=== PATIENT | male | born 1990 | race Caucasian/White ===

== ENCOUNTER 2023-05-24 07:52 | Emergency (ER) | payer OTHER ==
--- NOTE | 2023-05-24 08:12 | ED Physician Documentation ---
PD HPI UPPER EXT INJURY - Stated complaint Stated Complaint: BILAT WRIST PX - Chief complaint Chief Complaint: Trauma Ext - History obtained from History obtained from: Patient - History of Present Illness Location: Right (right wrist started hurting doing PRT physical testing 4 days ago, with onset pain later in day and has persisted.), Left (left wrist pain when struck volleyball during game yesterday.), Wrist Where injury occurred: Work Timing - onset: How many days ago (4 days right wrist, 2 days for left.) Timing - duration: Days Timing - details: Abrupt onset, Still present Associated symptoms: No: Weakness, Numbness Similar symptoms before: Has not had sx before Review of Systems Constitutional: denies: Fever, Chills Skin: denies: Rash, Lesions Musculoskeletal: denies: Extremity swelling Neurologic: denies: Focal weakness, Numbness PD PAST MEDICAL HISTORY - Past Medical History Cardiovascular: None Respiratory: None Endocrine/Autoimmune: None - Present Medications Home Medications: Ambulatory Orders Medication Instructions Recorded Confirmed No Known Home Medications 05/24/23 05/24/23 - Allergies Allergies/Adverse Reactions: Allergies Allergy/AdvReac Type Severity Reaction Status Date / Time No Known Drug Allergies Allergy Verified 05/24/23 08:09 PD ED PE NORMAL - Vitals Vital signs reviewed: Yes - General General: Alert and oriented X 3, No acute distress, Well developed/nourished - Derm Derm: Normal color, Warm and dry, No rash - Extremities Extremities: Other (right wrist with some tenderness volar area. Not tender in snuffbox. No edema. Left wrist with tender along radial side and base of thumb. ) - Neuro Neuro: Alert and oriented X 3, No motor deficit, No sensory deficit Results - Vitals Vitals: Vital Signs - 24 hr 05/24/23 05/24/23 08:07 09:21 Temperature 36.9 C Heart Rate 63 65 Respiratory 14 16 Rate Blood Pressure 138/92 H 128/90 H O2 Saturation 99 100 Oxygen O2 Source Room air - Rads (name of study) wrist xrays Relevant Findings:: Prelim report reviewed, EMP independent interpretation of test (no acut process) PD Medical Decision Making - ED course Complexity details: reviewed results, considered differential (sprain left wrist more acutely, and right wrist sounding more like overuse strain. Can treat with splints. NSAIDs. decreased work. ), d/w patient Departure - Departure Disposition: 01 Home, Self Care Clinical Impression: Left wrist sprain, Right wrist tendonitis Condition: Stable Record reviewed to determine appropriate education?: Yes Instructions: ED Sprain Wrist Follow-Up: DANE Garg [Provider Group] Comments: Your x-rays are normal which only shows you the bony structures. It seems likely that you have a sprain of the left wrist (more of an acute stretch type injury) and tendinitis/sprain of the right (more of a repetitive use/irritation). These are similarly treated with decreased use and some support or bracing as well as NSAIDs and time. Use the wrist splints when active to help support and protect the ligaments and muscles. You do not have to have them on all the time. Continue with some ibuprofen 600 mg 2-3 times daily regularly for the next week. Add Tylenol if needed. Follow-up with your primary care/base clinic if not improved well over the next 5 or 6 days. Later use with your wrist during that time. Forms: PCP List, Activity restrictions Discharge Date/Time: 05/24/23 09:22
--- NOTE | 2023-05-24 09:12 | XRAY Report ---
PROCEDURE: Wrist 3 View BILAT INDICATIONS: sprain left yest; slower onset pain right TECHNIQUE: 3 views of the wrists were acquired. COMPARISON: None. FINDINGS: Bones: No fractures or dislocations. No suspicious bony lesions. Soft tissues: No suspicious soft tissue calcifications or masses. IMPRESSION: No acute bony abnormality. Reviewed by: Jim Diallo on 05/24/2023 9:11 AM PDT Approved by: Jim Diallo on 05/24/2023 9:11 AM PDT Station ID: [id number]
[2023-05-24 09:31] VITALS: BP 128/90
== END 2023-05-24 09:22 | disposition home or self-care (01) ==
LOC: ED 07:52
DX: S63.502A Unspecified sprain of left wrist, initial encounter (principal); W21.06XA Struck by volleyball, initial encounter; Y93.68 Activity, volleyball (beach) (court); Y92.318 Other athletic court as the place of occurrence of the external cause; M77.8 Other enthesopathies, not elsewhere classified
CPT/HCPCS: 99283

== ENCOUNTER 2023-06-15 10:57 | Emergency (ER) | payer OTHER ==
--- NOTE | 2023-06-15 11:36 | ED Physician Documentation ---
History of Present Illness - Stated complaint Stated Complaint: RIB PX,SOA - Chief complaint Chief Complaint: Resp - Additonal information Additional information: 33-year-old male presents emergency department for evaluation of acute right-si ded rib and chest wall pain. Reports that 3 evenings ago he had gone up a steep hill to capture his cat who escaped. When he caught the cat and was walking back down the hill he lost his footing falling directly onto the ground on his right side and shoulder. States the wind was knocked out of him but he did not lose consciousness. No anticoagulation. Since then he has had some fairly persistent pain in the rib wall. Movements are intact. He does vape. No recent hemoptysis. Denies neck pain back pain or extremity pain. No melena or hematochezia. Review of Systems Constitutional: denies: Fever Throat: reports: Reviewed and negative Cardiac: reports: Reviewed and negative Respiratory: denies: Dyspnea, Cough, Hemoptysis GI: reports: Reviewed and negative : reports: Reviewed and negative Skin: reports: Reviewed and negative Musculoskeletal: reports: Other (chest wall pain). denies: Neck pain, Back pain Neurologic: reports: Reviewed and negative PD PAST MEDICAL HISTORY - Past Medical History Cardiovascular: None Respiratory: None Endocrine/Autoimmune: None - Past Surgical History Past Surgical History: No - Present Medications Home Medications: Ambulatory Orders Medication Instructions Recorded Confirmed HYDROcod/ACETAM 5/325 [[place] 5/325] 1 tablet PO BID PRN #7 tablet 06/15/23 - Allergies Allergies/Adverse Reactions: Allergies Allergy/AdvReac Type Severity Reaction Status Date / Time No Known Drug Allergies Allergy Verified 05/24/23 08:09 - Social History Does the pt smoke?: Yes Smoking Status: Current every day smoker Does the pt drink ETOH?: Yes Does the pt have substance abuse?: No - Immunizations Immunizations are current?: Yes PD ED PE NORMAL - General General: Alert and oriented X 3, No acute distress - HEENT HEENT: PERRL - Neck Neck: C-Spine cleared by NEXUS criteria - Cardiac Cardiac: RRR, No murmur - Respiratory Respiratory: No respiratory distress, Clear bilaterally - Abdomen Abdomen: Normal bowel sounds, Soft - Back Back: No spinal TTP (No pain elicited with palpation of the cervical thoracic or lower lumbar spinous processes. No step-off or deformity. Normal gait.), Other (Mild tenderness elicited with palpation of the right anterior lateral rib sullivan. No ecchymosis noted. No crepitus. Patient able to take full deep breaths.) - Derm Derm: Warm and dry, Other (No abrasions or ecchymosis noted on thorax) - Extremities Extremities: No deformity - Neuro Neuro: Alert and oriented X 3 Eye Opening: Spontaneous Motor: Obeys Commands Verbal: Oriented GCS Score: 15 Results - Vitals Vitals: Vital Signs - 24 hr 06/15/23 11:00 Temperature 37.0 C Heart Rate 75 Respiratory 18 Rate Blood Pressure 148/88 H O2 Saturation 98 Oxygen O2 Source Room air PD Medical Decision Making - ED course Complexity details: reviewed results, re-evaluated patient, considered differential, d/w patient ED course: 33-year-old male presents to the emergency department for evaluation of right chest wall pain. Had a fall down a hill 3 nights ago. He has reproducible pain on the anterior and right lateral rib sullivan. There is no obvious ecchymosis or crepitus. His cardiopulmonary auscultation was unremarkable. Room air saturations 98%. PA chest with rib x-rays interpreted by the radiologist showed no acute or displaced rib fractures. There were no findings of pneumonia, pneumothorax cardiomegaly or pleural effusion. Clinically history is most suggestive of chest wall or rib wall contusion. I making the recommendation for ibuprofen and Tylenol for discomfort. For more severe pain a very limited amount of Naubinway has been sent to the pharmacy. The usual emergent return precautions for failure symptoms to resolve was discussed. I am prescribing a short course of short-acting opioid pain medication for this patient. 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 I have discussed that the opioids are for short term therapy only, and will not be refilled from the ED. Departure - Departure Disposition: 01 Home, Self Care Clinical Impression: Contusion of chest wall with intact skin Condition: Stable Record reviewed to determine appropriate education?: Yes Instructions: ED Contusion Rib Prescriptions: HYDROcod/ACETAM 5/325 [[place] 5/325] 1 tablet PO BID PRN #7 tablet PRN Reason: Pain Comments: As discussed at the bedside your fall Saturday evening did not result in any obvious rib fractures but you certainly do have some rib and chest wall contusions. I would expect this to be getting better over the next week to 10 days. In general I want you to take 500 mg of Tylenol twice daily or alternate with 600 mg of ibuprofen taken with food twice daily. For more severe pain I have written a prescription for limited amount of Naubinway/hydrocodone. Reasons to return to the ER would include the development of any fevers, concerns of pneumonia, bloody sputum, severe difficulty breathing. I am prescribing a short course of narcotic pain medication for you. These are potentially dangerous and addictive medications that should be used carefully. These medications may constipate you. Take an [id number] stool softener (docusate) twice daily with plenty of water while taking these medications. If you go 24 hours without a bowel movement, take [id number] miralax, per package instructions. Do not drink or drive while taking these medications. If you received narcotic or sedating medications while in the emergency department, do not drive for 24 hours. Store this medication in a safe, secure place and out of reach of children. It is a violation of federal law to give or sell this medication to another person or to use in a manner other than prescribed. The ED will not refill narcotic prescriptions, including prescriptions lost or stolen. To dispose of unwanted medications: 1. [facility] at [address] in [place] has a medication drop box. They accept prescription medications (in pill form) Saturday through Saturday 9:00 a.m. to 5:00 p.m. 2. The [facility] [employer] accepts prescription medications (in pill form only) for disposal year round. Call for more information. 3. Contact the [facility] for the next [facility] sponsored prescription drug collection event. , [phone], or [phone]; Note that many narcotic pain relievers also contain Tylenol/acetaminophen. Please ensure that your total dose of acetaminophen from all sources does not exceed 3 g (3000 mg) per day. Forms: PCP List
--- NOTE | 2023-06-15 12:07 | XRAY Report ---
PROCEDURE: Ribs w/PA Chest RT INDICATIONS: pain after fall down hill TECHNIQUE: 2 views of the left ribs were acquired, along with a single view chest. COMPARISON: None. FINDINGS: Surgical changes and devices: None. Bones and chest wall: No fractures or dislocations. No suspicious bony lesions. Overlying soft tis sues appear unremarkable. Lungs and pleura: No pleural effusions or pneumothorax. Lungs appear clear. Mediastinum: Mediastinal contours appear normal. Heart size is normal. IMPRESSION: No displaced rib fracture or pneumothorax. Reviewed by: Reyes Sun MD on 06/15/2023 12:05 PM PDT Approved by: Reyes Sun MD on 06/15/2023 12:05 PM PDT Station ID: [id number]
[2023-06-15 12:49] VITALS: BP 140/92; O2SAT 99
== END 2023-06-15 12:46 | disposition home or self-care (01) ==
LOC: ED 10:57
DX: S20.211A Contusion of right front wall of thorax, initial encounter (principal); W18.39XA Other fall on same level, initial encounter; Y93.01 Activity, walking, marching and hiking; Y92.828 Other wilderness area as the place of occurrence of the external cause; F17.200 Nicotine dependence, unspecified, uncomplicated
CPT/HCPCS: 99283

== ENCOUNTER 2023-08-21 10:39 | Outpatient (CLI) | payer OTHER ==
--- NOTE | 2023-08-21 11:32 | Sleep Patient Instructions ---
Sleep Center Visit Summary - Patient Visit Information Reason for Visit: Initial consult for evaluation of sleep disordered breathing and other sleep issues. - Patient Instructions Instructions Attached: Sleep Study Home Monitor Additional Instructions: You will be completing a sleep study, either an in-lab polysomnography (PSG) or home sleep study (HST). You will follow-up in the sleep care office after the sleep study is completed to hear the results and talk about therapy, if needed. You will be called by our office staff to schedule this appointment, but you may contact us with any questions. - Clinic Information Contact: [facility] [address] [place] [address] [email or web address] T: [phone]
--- NOTE | 2023-08-21 11:37 | SLEEP CARE CONSULTATION ---
Information from patient questionnaire entered by Clinton Lr. I have reviewed and concur with the information entered by Clinton Lr. This document represents the service I personally performed and the decisions made by me, Angy Bueno ARNP. History of Present Illness Service Date and Time: 08/21/2023 1039 Reason for Visit: New patient Chief Complaint: reports: Unrefreshed sleep, Snoring, Excessive daytime sleepiness, Observed pauses in breathing, Fatigue Date of Onset: 2-2.5YRS Usual bedtime: 9PM Time it takes to fall asleep: 5MIN Snores at night: Yes Observed to quit breathing while asleep: Yes Sleeps alone due to snoring: Yes Number of times waking at night: 4-5 Reasons for waking at night: reports: Choking, Snoring, Gasping for air Toss, Turn, or Twitch while sleeping: Yes Recalls having dreams: No Usually gets out of bed at: 5AM; weekends to 6-7 AM Feels refreshed in the morning: No Morning headache: No Sleepy or fatigued during the day: Yes Ever fallen asleep while driving: No Takes day naps: Yes (daily after work; for 1 hour to 1 hr 15 mins) Dreams during day naps: No Prior sleep studies: No Additional HPI information: I had the pleasure of seeing HENNY JUÁREZ today regarding the possibility of him having a sleep disorder. His current complaints are excessive daytimes sleepiness, fatigue, frequent night awakenings, observed pauses in breathing, snoring and unrefreshed sleep. He states he can fall asleep easily and quickly. But, he will wake up multiple times a night. His will wake him up several times for snoring. He does wake up choking and gasping for air. It is not every night, but averages 1-3 times a week. He states he does not remember dreaming. He rarely wakes up feeling refreshed in the morning despite getting enough time in bed. 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 Patient is and lives in [place]. Have you smoked in the past 12 months: Yes (VAPE) Cigarettes per day (20/pack): 10 Years of smokin Smoking Pack Years: 7.0 Alcohol use: Yes Alcohol amount and frequency: 1-2 GLASSES A MONTH Caffeine use: Yes Caffeine amount and frequency: 1 CAN 2-3X WEEK Family History Family history of sleep disordered breathing: Yes Family Hx Sleep Apnea: Father: Snoring, Sibling: Snoring Allergies and Home Medications Known drug allergies: No Drug allergies reviewed: Yes Home medication list reviewed: Yes Allergy and home medication list: Allergies No Known Drug Allergies Allergy (Verified 08/20/23 12:36) Home Medications Medication Instructions Recorded Confirmed Last Taken Type [place]-3/Dha/Epa/Fish Oil [Fish Oil See Rx Instructions .ROUTE .COMPLEX 08/21/23 08/21/23 Unknown History 1,000 mg Softgel] Review of Systems Cardiovascular: reports: high blood pressure Urinary: denies: incontinence Neurological: denies: headaches Psychiatric: reports: Attention Deficit Hyperactivity. denies: anxiety, depression Ear/Nose/Throat: reports: wisdom teeth removed. denies: tonsillectomy Endocrine: reports: sluggishness Immunologic: denies: allergies to food or environment Physical Exam Vital signs obtained and entered by: CLINTON Watson MA Blood Pressure: 128/80 (LEFT ARM) Cuff size: regular Heart Rate: 80 O2 Saturation: 98 Height: 5 ft 8.75 in Weight: 170 lb 3.2 oz Body Mass Index: 25.3 BMI Classification: Overweight Neck circumference: 15.25 Mouth and throat: narrow oropharynx Soft palate: long Hard palate: normal Uvula: normal Uvula visualization: 0% Mallampati Class IV Tongue: enlarged in size with teeth long on lateral edges Tonsils: 2+ Neck: normal w/o lymphadenopathy or thyromegaly Heart: regular rate and rhythm Lungs: clear bilaterally Impression and Plan 1. Suspected Obstructive Sleep Apnea-Hypopnea Syndrome, as suggested by a history of loud and irregular snoring, observed cessation of breath while asleep, gasping or choking in sleep, frequent awakening during the night, unrefreshed sleep, cognitive impairment, and excessive daytime sleepiness. Narrow oropharynx and obesity are common predisposing factors for obstructive sleep apnea-hypopnea syndrome. I recommend proceeding to polysomnography to confirm the diagnosis and to assess severity. If the patient has significant sleep disordered breathing, a manual CPAP titration study will also be performed to find the optimal treatment pressure. I informed the patient of what the sleep studies involve and after some discussion, obtained agreement to proceed. The pathophysiology of obstructive sleep apnea-hypopnea syndrome was discussed with the patient and health risks of cardiovascular and cerebrovascular disease if not treated. 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 Patient agreed to plan. * Schedule polysomnography. * Avoid long distance driving or driving when feeling sleepy. * Avoid alcohol, sedative and muscle relaxant around bedtime. * Attempt to lose weight. * Review instructions provided by trained office staff on how to prepare for the sleep study. * Return for follow-up after sleep study completed. Counseling Topics: Weight loss health impact Plan: PSG/HST Visit Type: In Office Time Spent with Patient (minutes): 30 Provider Statement: I spent 100% of the Face to Face Visit with the patient with greater than 50% spent counseling the patient and coordination of care.
[2023-08-21 11:38] VITALS: BP 128/80; O2SAT 98
== END 2023-08-21 10:40 | disposition home or self-care (01) ==
LOC: SC 10:39
PROVIDERS: ATTEND Nurse Practitioner Family
DX: R06.83 Snoring (principal); G47.8 Other sleep disorders; R06.81 Apnea, not elsewhere classified; G47.10 Hypersomnia, unspecified; R53.83 Other fatigue; I10 Essential (primary) hypertension; E66.3 Overweight; Z68.25 Body mass index [BMI] 25.0-25.9, adult; F17.290 Nicotine dependence, other tobacco product, uncomplicated
CPT/HCPCS: 99203; 99212

== ENCOUNTER 2023-10-14 08:28 | Outpatient (CLI) | payer OTHER | END 2023-10-14 08:29 | disposition home or self-care (01) | LOC: SC 08:28 | PROVIDERS: ATTEND Nurse Practitioner Family | DX: Z53.9 Procedure and treatment not carried out, unspecified reason (principal) ==

== ENCOUNTER 2023-11-08 09:02 | Outpatient (CLI) | payer OTHER | END 2023-11-08 09:03 | disposition home or self-care (01) | LOC: SC 09:02 | PROVIDERS: ATTEND Nurse Practitioner Family | DX: R09.02 Hypoxemia (principal) | CPT/HCPCS: 95806 ==

== ENCOUNTER 2023-11-19 09:18 | Outpatient (CLI) | payer OTHER ==
--- NOTE | 2023-11-19 09:55 | Sleep Patient Instructions ---
Sleep Center Visit Summary - Patient Visit Information Reason for Visit: Sleep study follow-up - Patient Instructions Instructions Attached: Sleep Study Additional Instructions: You will be completing a sleep study, either an in-lab polysomnography (PSG) or home sleep study (HST). You will follow-up in the sleep care office after the sleep study is completed to hear the results and talk about therapy, if needed. You will be called by our office staff to schedule this appointment, but you may contact us with any questions. - Clinic Information Contact: [facility] [address] [place] [address] [email or web address] T: [phone]
--- NOTE | 2023-11-19 09:58 | SLEEP CARE CONSULTATION ---
Information from patient questionnaire entered by Mary Lr. I have reviewed and concur with the information entered by Mary Lr. This document represents the service I personally performed and the decisions made by , Angy Bueno ARNP. History of Present Illness Service Date and Time: 11/19/2023 09 Initial [place] Sleepiness Scale score: 16 (08/21/23) Current [place] Sleepiness Scale score: 14 Additional HPI information: HENNY JUÁREZ returns for follow up and results of the recently performed home sleep study. The patient was informed of the following findings: No significant sleep disordered breathing with an average AHI of 4.5 and rocio oxygen saturation of 89%. I explained the pathophysiology behind obstructive sleep apnea. Patient does not have sleep apnea and was advised how weight gain could increase the risk of developing sleep apnea in the future. Patient does not have significant sleep disordered breathing but has elevated AHI in supine position so advised positional therapy. Methods to achieve positional management therapy were discussed; such as, positioning with pillows, wearing a T-shirt with tennis balls sewn into the back or commercially available products. Patient has moderate snoring. Snoring can be reduced by weight loss. Weight loss is best achieved with diet consult. Patient instructed to contact PCP for referral. Snoring can also be treated with an oral appliance from a dentist. Advised to check insurance coverage. In addition, an ENT evaluation can be do to see if other treatment is indicated. Patient counseled not drink alcohol less than 4 hours before bedtime as it can increase snoring and apnea. Patient was cautioned about risks of drowsy driving until sleepiness symptoms resolve. Patient denies drowsy driving. Sleep Study - Results Type of Sleep Study: Home sleep study (COMPLETED 11/10/2023) Prior sleep studies: No Polysomnography/Home Sleep Study results: Physician Impression: The quality of the study is good. The length of the study is adequate (> 240 minutes). Please also see the tabulated and graphic data. 1. No significant sleep disordered breathing, with an AHI of 4.5/hr and rocio SaO2 of 89%. During the study, the patient had 18 apneas (18 obstructive, 0 central, 0 mixed) and 14 hypopneas. The longest episode lasted 127.0 seconds. The respiratory events occurred almost exclusively during supine sleep (supine AHI was 5.5 and non-supine, 0.69). 2. Hypoxemia (ICD-10 R09.02), minimal, with the lowest oxygen saturation of 89 % and 0.1 minutes with SaO2 under 90%. Baseline oxygen saturation was normal (Average oxygen saturation was 95%). Allergies and Home Medications Known drug allergies: No Drug allergies reviewed: Yes Home medication list reviewed: Yes (no changes) Allergy and home medication list: Allergies No Known Drug Allergies Allergy Review of Systems Review of systems same as previous: Yes (no changes) Physical Exam Vital signs obtained and entered by: KATIE RHODES Blood Pressure: 148/100 (pt nervous about results and had caffiene drink) Cuff size: regular (right arm) Heart Rate: 117 O2 Saturation: 99 Height: 5 ft 8.75 in Weight: 169 lb Body Mass Index: 25.1 BMI Classification: Overweight Impression and Plan 1. Suspected Obstructive Sleep Apnea-Hypopnea Syndrome, as suggested by a hi story of loud and irregular snoring, observed cessation of breath while asleep, gasping or choking in sleep, frequent awakening during the night, unrefreshed sleep, cognitive impairment, and excessive daytime sleepiness. He felt like he had a somewhat normal night's sleep on night of HST. Patient's HST had borderline results and it was recommended that he repeat sleep study and lab for more accurate results. I would like to verify results. I recommend proceeding to polysomnography to confirm the diagnosis and to assess severity. I obtained agreement to proceed. The pathophysiology of obstructive sleep apnea-hypopnea syndrome was discussed with the patient and health risks of cardiovascular and cerebrovascular disease if not treated. Risks of drowsy driving discussed in detail and patient advised to avoid long distance driving and to breast puller at the first sign of drowsiness. Patient agreed to plan. * Schedule polysomnography * Avoid long distance driving or driving when feeling sleepy. * Avoid alcohol, sedative and muscle relaxant around bedtime. * Maintain a healthy weight. * Review instructions provided by trained office staff on how to prepare for the sleep study. * Return for follow-up after sleep study completed. Counseling Topics: Sleeping position, Weight control Plan: in lab PSG and followup Visit Type: In Office Time Spent with Patient (minutes): 20 Provider Statement: I spent 100% of the Face to Face Visit with the patient with greater than 50% spent counseling the patient and coordination of care.
[2023-11-19 10:14] VITALS: BP 148/100; O2SAT 99
== END 2023-11-19 09:19 | disposition home or self-care (01) ==
LOC: SC 09:18
PROVIDERS: ATTEND Nurse Practitioner Family
DX: R06.83 Snoring (principal); R06.81 Apnea, not elsewhere classified; G47.8 Other sleep disorders; R41.89 Other symptoms and signs involving cognitive functions and awareness; G47.10 Hypersomnia, unspecified
CPT/HCPCS: 99212; 99213

== ENCOUNTER 2023-12-02 20:34 | Outpatient (CLI) | payer OTHER | END 2023-12-02 20:35 | disposition home or self-care (01) | LOC: SC 20:34 | PROVIDERS: ATTEND Nurse Practitioner Family | DX: R06.83 Snoring (principal); G47.8 Other sleep disorders; R06.81 Apnea, not elsewhere classified; R53.83 Other fatigue; I10 Essential (primary) hypertension | CPT/HCPCS: 95810 ==

== ENCOUNTER 2023-12-13 09:45 | Outpatient (CLI) | payer OTHER ==
--- NOTE | 2023-12-13 10:02 | Sleep Patient Instructions ---
Sleep Center Visit Summary - Patient Visit Information Reason for Visit: Sleep study follow-up - Patient Instructions Instructions Attached: Snoring Tips Prevent Additional Instructions: Your sleep study today was negative for significant sleep disordered breathing. You were found to have episodes of snoring. There are different ways to control snoring including weight control, oral devices made by a dentist or surgical options through ENT specialist. You should not use oral devices that do not fit properly because they can affect your bite. You should also check insurance coverage of oral devices for snoring because they may not be cover well. You may obtain a referral to an ENT specialist through your primary provider. Follow-up as needed. - Clinic Information Contact: [facility] [address] [place] [address] [email or web address] T: [phone]
--- NOTE | 2023-12-13 10:03 | SLEEP CARE CONSULTATION ---
Information from patient questionnaire entered by Mayr Lr. I have reviewed and concur with the information entered by Mary Lr. This document represents the service I personally performed and the decisions made by , Angy Bueno ARNP. History of Present Illness Service Date and Time: 12/13/2023 0945 Initial [employer] [place] Sleepiness Scale score: 16 (08/21/23) Current [employer] [place] Sleepiness Scale score: 12 (12/13/23) Additional HPI information: HENNY JUÁREZ returns for follow up and results of the recently performed polysomnography. The patient was informed of the following findings: No significant sleep disordered breathing with an average AHI of 1.9 and rocio oxygen saturation of 88%. I explained the pathophysiology behind obstructive sleep apnea. Patient does not have sleep apnea and was advised how weight gain could increase the risk of developing sleep apnea in the future. Patient has light to loud snoring. Snoring can also be treated with an oral appliance from a dentist. Advised to check insurance coverage. In addition, an ENT evaluation can be do to see if other treatment is indicated. Patient counseled not drink alcohol less than 4 hours before bedtime as it can increase snoring and apnea. Patient was cautioned about risks of drowsy driving until sleepiness symptoms resolve. Patient denies drowsy driving. Sleep Study - Results Type of Sleep Study: Polysomnography (COMPLETED 12/06/23) Prior sleep studies: No Polysomnography/Home Sleep Study results: IMPRESSION: The quality of the study is good. The patient had normal sleep efficiency. Except for mild sleep fragmentation, the sleep architecture was also normal. Respiratory monitoring showed no significant sleep disordered breathing (AHI = 1.9) associated with frequent arousals, oxyhemoglobin desaturation and mild hypoxia (rocio oxygen saturation of 88%). The patient only slept supine during this study (supine AHI = 1.9; non-supine = 0.00). Snore was light to loud in intensity. There was no significant periodic leg movement of sleep. Cardiac rhythm was normal sinus rhythm without significant arrhythmia. No abnormal behavior (parasomnia) observed during the night. Allergies and Home Medications Known drug allergies: No Drug allergies reviewed: Yes Home medication list reviewed: Yes (no changes) Allergy and home medication list: Allergies No Known Drug Allergies Allergy (Verified 08/21/23 10:48) Review of Systems Review of systems same as previous: Yes (NO CHANGE) Physical Exam Vital signs obtained and entered by: MARY Watson MA Blood Pressure: 138/91 (LEFT ARM) Cuff size: regular Heart Rate: 90 O2 Saturation: 98 Height: 5 ft 8.75 in Weight: 165 lb 6.4 oz Body Mass Index: 24.5 BMI Classification: Normal Impression and Plan 1. Snoring but no significant sleep disordered breathing. Patient advised that often weight loss will reduce snoring as well as apnea risk. An oral appliance can also be used for snoring. This would require a dental consultation. Patient cautioned not to use other online appliances as can cause bite issues. Patient is advised to check if insurance will cover. An ENT consult can also be helpful to determine if any other treatment is an option. * Maintain a healthy weight * Avoid alcohol consumption near bedtime * The patient is cautioned about driving until sleepiness is completely resolved. * Return as needed for follow up. Counseling Topics: Weight control Follow up with Sleep Care in: as needed Visit Type: In Office Time Spent with Patient (minutes): 12 Provider Statement: I spent 100% of the Face to Face Visit with the patient with greater than 50% spent counseling the patient and coordination of care.
[2023-12-13 10:09] VITALS: BP 138/91; O2SAT 98
== END 2023-12-13 09:46 | disposition home or self-care (01) ==
LOC: SC 09:45
PROVIDERS: ATTEND Nurse Practitioner Family
DX: R06.83 Snoring (principal)
CPT/HCPCS: 99212